=== PATIENT | female | born 1945 | race Caucasian/White ===

== ENCOUNTER 2020-10-23 20:41 | Emergency (ER) | payer MEDICARE ==
[2020-10-23] MEDS ORDERED: NORCO 5-325 TA1 EACH PO (22:16)
== END 2020-10-23 22:34 | disposition home or self-care (01) ==
LOC: FER 20:41
DX: S93.402A Sprain of unspecified ligament of left ankle, initial encounter (principal); F17.210 Nicotine dependence, cigarettes, uncomplicated; W19.XXXA Unspecified fall, initial encounter; Y92.009 Unspecified place in unspecified non-institutional (private) residence as the place of occurrence of the external cause
CPT/HCPCS: 73610